=== PATIENT | male | born 1980 | race Caucasian/White ===

== ENCOUNTER 2017-01-06 10:08 | Emergency (ER) | payer MEDICAID, OTHER, SELFPAY ==
[~2017-01-06] VITALS: Ht 190.5 cm; Wt 100.0 kg
[~2017-01-06 10:08] MED LIST: PROZ20CA11 PO; WELL100T PO
[2017-01-06] MEDS ORDERED: NAPR500T3 PO (10:23)
[2017-01-06] MEDS ORDERED: TYLE500T78 PO (10:23)
[2017-01-06] MEDS ORDERED: KETOROLAC TROMETHAMINE 10 MG TAB PO ONE (10:45)
[2017-01-06] MEDS ORDERED: CYCLOBENZAPRINE 10 MG TAB PO ONE (10:45)
[2017-01-06] MEDS ORDERED: CYCL10TA PO (11:53)
[2017-01-06] MEDS ORDERED: PRED20TA PO (11:53)
[2017-01-06 11:59] VITALS: BP 116/79
== END 2017-01-06 12:03 | disposition home or self-care (01) ==
LOC: M ED 10:08
DX: S16.1XXA Strain of muscle, fascia and tendon at neck level, initial encounter (principal); V49.40XA Driver injured in collision with unspecified motor vehicles in traffic accident, initial encounter; Y92.410 Unspecified street and highway as the place of occurrence of the external cause; Y93.89 Activity, other specified; Y99.8 Other external cause status; R56.9 Unspecified convulsions; Z87.442 Personal history of urinary calculi; Z87.891 Personal history of nicotine dependence

== ENCOUNTER 2023-03-21 16:07 | Emergency (ER) | payer OTHER, SELFPAY ==
[~2023-03-21] VITALS: Ht 190.5 cm; Wt 102.7 kg
[~2023-03-21 16:07] MED LIST changes: +CYCL-707 PO; +NAPR-885 PO; +PRED20TA PO; +TYLE500T78 PO
[2023-03-21 17:11] VITALS: O2SAT 99
[2023-03-21] MEDS ORDERED: KETOROLAC 30 MG/ML 1ML VIAL IV ONE (18:30)
[2023-03-21 19:57] LABS: BASO % 0.4 % (0.0-1.0); EOS # 0.1 10^3/uL (0.0-0.5); EOS % 1.8 % (0.0-3.0); HEMATOCRIT 45.4 % (42.0-52.0); HEMOGLOBIN 16.2 g/dl (13.5-17.5); LYMPH # 3.8 10^3/uL (1.5-5.0); LYMPH % 51.1 % (24.0-44.0); MEAN CORPUSCULAR HEMOGLOBIN 30.3 pg (27.0-33.0); MEAN CORPUSCULAR HGB CONC 35.7 g/dl (32.0-36.5); MONO # 0.5 10^3/uL (0.0-0.8); MONO % 6.2 % (2.0-8.0); NEUTROPHILS % 40.2 % (36.0-66.0); PLATELET COUNT, AUTOMATED 179 10^3/uL (150-450); RED BLOOD COUNT 5.34 10^6/uL (4.30-6.10); WHITE BLOOD COUNT 7.4 10^3/uL (4.0-10.0)
[2023-03-21 20:11] LABS: INR 0.97; PARTIAL THROMBOPLASTIN TIME 27.1 SECONDS (24.8-34.2); PROTHROMBIN TIME 12.6 SECONDS (12.5-14.5)
[2023-03-21 20:17] VITALS: TEMP 97.8
[2023-03-21 20:26] LABS: ALBUMIN 3.9 G/DL (3.2-5.2); ALKALINE PHOSPHATASE 84 U/L (46-116); ALT/SGPT 46 U/L (7.0-40); AST/SGOT 23 U/L (<34); BILIRUBIN,TOTAL 0.5 MG/DL (0.3-1.2); BLOOD UREA NITROGEN 13 MG/DL (9-23); CALCIUM LEVEL 8.4 MG/DL (8.5-10.1); CARBON DIOXIDE LEVEL 28 MMOL/L (20-31); CHLORIDE LEVEL 103 MMOL/L (98-107); CREATININE FOR GFR 0.97 MG/DL (0.70-1.30); GLOMERULAR FILTRATION RATE > 60.0 (>60); GLUCOSE, FASTING 95 MG/DL (60-100); MAGNESIUM LEVEL 1.9 MG/DL (1.8-2.4); SODIUM LEVEL 138 MMOL/L (136-145); TOTAL PROTEIN 6.8 G/DL (5.7-8.2)
[2023-03-21 20:33] LABS: PROCALCITONIN <0.04 ng/ml
[2023-03-21] MEDS ORDERED: NS 1,000 ML IV ONE (20:45)
[2023-03-21 21:01] VITALS: BP 132/76
[2023-03-21 21:03] VITALS: O2SAT 97
== END 2023-03-21 22:38 | disposition home or self-care (01) ==
LOC: M ED 16:07
DX: U07.1 COVID-19 (principal); R00.1 Bradycardia, unspecified; G40.909 Epilepsy, unspecified, not intractable, without status epilepticus; F32.A Depression, unspecified; F12.10 Cannabis abuse, uncomplicated; F10.10 Alcohol abuse, uncomplicated; Z86.718 Personal history of other venous thrombosis and embolism; Z79.52 Long term (current) use of systemic steroids; Z79.1 Long term (current) use of non-steroidal anti-inflammatories (NSAID); Z79.899 Other long term (current) drug therapy
CPT/HCPCS: 36415; 70450; 71045; 80053; 83735; 84145; 85025; 85610; 85730; 93005; 96361; 96374; 99285; J1885

== ENCOUNTER 2023-11-01 09:45 | Emergency (ER) | payer OTHER, SELFPAY ==
[~2023-11-01] VITALS: Ht 190.5 cm; Wt 111.5 kg
[2023-11-01 09:46] VITALS: BP 161/99; TEMP 97.4; O2SAT 98
[2023-11-01] MEDS ORDERED: TEST200I14 (10:25)
[2023-11-01] MEDS: IBUPROFEN 600MG TAB PO ONE (12:00)
== END 2023-11-01 12:28 | disposition home or self-care (01) ==
LOC: M ED 09:45
DX: S69.92XA Unspecified injury of left wrist, hand and finger(s), initial encounter (principal); M79.642 Pain in left hand; W22.09XA Striking against other stationary object, initial encounter; F12.10 Cannabis abuse, uncomplicated; F10.10 Alcohol abuse, uncomplicated; Y92.814 Boat as the place of occurrence of the external cause; Y93.89 Activity, other specified; Y99.9 Unspecified external cause status; Z79.899 Other long term (current) drug therapy

== ENCOUNTER 2024-01-09 18:26 | Emergency (ER) | payer MEDICAID, OTHER, SELFPAY ==
[~2024-01-09] VITALS: Ht 190.5 cm; Wt 106.8 kg
[~2024-01-09 18:26] MED LIST changes: +TEST200I14
[2024-01-09 18:42] VITALS: TEMP 99.3
[2024-01-09 19:08] LABS: BASO # 0.1 10^3/uL (0.0-0.2); BASO % 0.5 % (0.0-1.0); EOS # 0.2 10^3/uL (0.0-0.5); EOS % 1.4 % (0.0-3.0); HEMATOCRIT 46.7 % (42.0-52.0); HEMOGLOBIN 16.1 g/dl (13.5-17.5); LYMPH # 2.3 10^3/uL (1.5-5.0); LYMPH % 19.3 % (24.0-44.0); MEAN CORPUSCULAR HEMOGLOBIN 30.1 pg (27.0-33.0); MEAN CORPUSCULAR HGB CONC 34.5 g/dl (32.0-36.5); MEAN CORPUSCULAR VOLUME 87.5 fl (80.0-96.0); MONO % 8.2 % (2.0-8.0); NEUTROPHILS # 8.4 10^3/uL (1.5-8.5); NEUTROPHILS % 70.2 % (36.0-66.0); PLATELET COUNT, AUTOMATED 194 10^3/uL (150-450); RED BLOOD COUNT 5.34 10^6/uL (4.30-6.10)
[2024-01-09] MEDS: NS 1,000 ML IV ONE (19:25)
[2024-01-09] MEDS: ONDANSETRON 4MG 2ML VIAL IV ONE (19:25)
[2024-01-09] MEDS: MORPHINE 4 MG/ML 1ML VIAL IV ONE (19:25)
[2024-01-09 19:33] LABS: BLOOD UREA NITROGEN 11 MG/DL (9-23); CALCIUM LEVEL 8.4 MG/DL (8.5-10.1); CARBON DIOXIDE LEVEL 29 MMOL/L (20-31); CHLORIDE LEVEL 103 MMOL/L (98-107); CK-MB VALUE MASS < 1.0 NG/ML (<3.6); CREATININE FOR GFR 1.07 MG/DL (0.70-1.30); GLOMERULAR FILTRATION RATE > 60.0 (>60); GLUCOSE, FASTING 131 MG/DL (60-100); POTASSIUM SERUM 3.8 MMOL/L (3.5-5.1); SODIUM LEVEL 136 MMOL/L (136-145)
[2024-01-09 19:46] LABS: MAGNESIUM LEVEL 1.7 MG/DL (1.8-2.4)
[2024-01-09 19:48] LABS: CPK CREATINE PHOSPHOKINASE 92 U/L (46-171); MB/CK RELATIVE INDEX 1.08 (< OR =4)
[2024-01-09] MEDS ORDERED: ISOVUE-370 76% 100ML VIAL As Ordered ONE (19:59)
[2024-01-09] MEDS: KETOROLAC 30 MG/ML 1ML VIAL IV ONE (20:49)
[2024-01-09 21:30] VITALS: O2SAT 97
[2024-01-09 21:31] VITALS: BP 136/72
== END 2024-01-09 21:51 | disposition home or self-care (01) ==
LOC: M ED 18:26
DX: R07.9 Chest pain, unspecified (principal); R51.9 Headache, unspecified; E86.0 Dehydration; I25.2 Old myocardial infarction; G40.909 Epilepsy, unspecified, not intractable, without status epilepticus; Z86.79 Personal history of other diseases of the circulatory system
CPT/HCPCS: 70450; 71045; 71275; 80048; 82550; 82553; 83735; 83880; 84484; 85025; 87486; 87581; 87633; 87798; 93005; 93041; 94760; 96361; 96374; 96375; 99285; J1885; J2405; Q9967

== ENCOUNTER → 2024-03-01 | Outpatient (CLI) | payer OTHER | LOC: M PLAIMG 06:39 | PROVIDERS: ATTEND Physician Assistant | DX: M79.645 Pain in left finger(s) (principal) ==

== ENCOUNTER 2024-11-20 02:46 | Emergency (ER) | payer OTHER ==
[~2024-11-20] VITALS: Ht 190.5 cm; Wt 111.8 kg
[~2024-11-20 02:46] MED LIST changes: -PROZ20CA11 PO; +PROZ20CA12 PO
[2024-11-20 05:01] LABS: BASO # 0.1 10^3/uL (0.0-0.2); BASO % 0.9 % (0.0-1.0); EOS # 0.2 10^3/uL (0.0-0.5); EOS % 2.1 % (0.0-3.0); LYMPH # 3.7 10^3/uL (1.5-5.0); LYMPH % 37.0 % (24.0-44.0); MONO # 0.8 10^3/uL (0.0-0.8); MONO % 7.7 % (2.0-8.0); NEUTROPHILS # 5.2 10^3/uL (1.5-8.5); NEUTROPHILS % 52.0 % (36.0-66.0); PLATELET COUNT, AUTOMATED 223 10^3/uL (150-450)
[2024-11-20 05:24] LABS: CK-MB VALUE MASS 1.6 NG/ML (<3.6)
[2024-11-20 05:26] LABS: CALCIUM LEVEL 8.8 MG/DL (8.5-10.1); CARBON DIOXIDE LEVEL 27 MMOL/L (20-31); CHLORIDE LEVEL 103 MMOL/L (98-107); CREATININE FOR GFR 0.96 MG/DL (0.70-1.30); GLOMERULAR FILTRATION RATE > 90.0 (>60); POTASSIUM SERUM 4.4 MMOL/L (3.5-5.1); SODIUM LEVEL 142 MMOL/L (136-145)
[2024-11-20 05:27] LABS: CPK CREATINE PHOSPHOKINASE 98 U/L (46-171); MB/CK RELATIVE INDEX 1.63 (< OR =4)
[2024-11-20 07:13] LABS: CK-MB VALUE MASS < 1.0 NG/ML (<3.6)
[2024-11-20 07:31] LABS: CPK CREATINE PHOSPHOKINASE 74 U/L (46-171)
[2024-11-20 07:46] VITALS: BP 153/99; TEMP 97.2; O2SAT 98
== END 2024-11-20 07:53 | disposition home or self-care (01) ==
LOC: M ED 02:46
DX: R07.9 Chest pain, unspecified (principal); F43.0 Acute stress reaction; R00.1 Bradycardia, unspecified; I25.2 Old myocardial infarction; G40.909 Epilepsy, unspecified, not intractable, without status epilepticus; Z87.442 Personal history of urinary calculi